=== PATIENT | male | born 1935 | race Caucasian/White ===

== ENCOUNTER → 2017-03-19 | Outpatient (CLI) | payer MEDICARE, OTHER ==
[~2017-03-19] VITALS: Ht 175.3 cm; Wt 75.7 kg
[~2017-03-19] MED LIST: ASPI-875 PO; CATHETER FLUSH 10 ML SYR IV PRN; FNST5T; MULT1TAB63; OMEP20CA12 PO; REGADENOSON 0.4 MG/5 ML SYR (LEXISCAN) IV ONE
[2017-03-19 13:19] VITALS: BP 130/62
[2017-03-19 13:22] VITALS: BP 124/63
[2017-03-19 13:25] VITALS: BP 157/77
--- NOTE | 2017-03-19 16:25 | ECHOCARDIOGRAPHY REPORT ---
DATE OF SERVICE: 03/19/2017 REFERRING PHYSICIAN: Dr. Megha Ross MEASUREMENT: LVID end diastolic 4.9. IVS thickness 1.1. LVPW thickness 1.0. Left atrial diameter 3.0. Ejection fraction 60%. FINDINGS: 1. Technical quality is good. 2. The left ventricle is normal in size with normal contractility, systolic function appeared to be normal, estimated fraction 60%. 3. The left atrium is normal in size. No clot or thrombus were seen within the left atrium. 4. The right atrium and right ventricle are normal in size. No clots or thrombus were seen within the right side. 5. Mitral valve is normal in morphology with mild mitral regurgitation noted by color Doppler flow. No mitral valve prolapse. No mitral valve stenosis. 6. Aortic valve is trileaflet with normal opening and closing pattern. No significant aortic stenosis or regurgitation was seen. 7. Tricuspid valve is normal in morphology with mild tricuspid regurgitation noted by color Doppler flow. Doppler across the tricuspid valve estimated pulmonary artery pressure of 17+ right atrial pressure. 8. Pulmonic valve is functioning normally. 9. No pericardial effusion. CONCLUSION: 1. Normal left ventricular size and systolic function, estimated ejection fraction 60%. 2. Mild mitral regurgitation, mild tricuspid regurgitation. 3. Estimated pulmonary artery pressure of 25 mmHg. Job ID: [id number] DocumentID: [id number] Dictated Date: 03/19/2017 14:43:36 Urgent Care Technician Date: 03/19/2017 15:24:56 Dictated By: ADOLPH CAMPOS MD
--- NOTE | 2017-03-20 07:11 | STRESS TEST ---
DATE OF SERVICE: 03/19/2017 EXERCISE AND LEXISCAN MYOVIEW STRESS TEST REFERRING PHYSICIAN: ____ FINDINGS: Baseline heart rate is 55. Baseline blood pressure 141/80. Baseline EKG is sinus rhythm with no abnormality. SUMMARY: The patient was injected with 10.42 mCi of technetium-99 Myoview, and the resting images were obtained. Then he started exercising with the baseline heart rate, blood pressure and EKG mentioned above. At minute 6 and 17 seconds, he was unable to perform any further. Test was terminated and converted to a Lexiscan Myoview stress test. The patient received 0.4 mg of Lexiscan, followed by 28.8 mCi of technetium-99 Myoview. Throughout the test, there were no EKG changes. The resting and stress images were reviewed and compared in the short axis, horizontal long axis and vertical long axis views. Review of the images showed diaphragmatic attenuation with mildly decreased uptake at the inferoapical segment with subtle reversibility. No significant ischemia was noted. SSS is 3, SDS 3, TID value 0.96. On the gated images, the left ventricle appeared to be normal size with normal contractility, calculated ejection fraction 61%. CONCLUSIONS: 1. Fair exercise tolerance, a total of 6 minutes 17 seconds on standard [place] protocol, did not reach his target heart rate. Test was terminated and converted to a Lexiscan Myoview stress test. He was unable to perform any further, tolerated Lexiscan well. 2. Diaphragmatic attenuation with typical male pattern with no significant ischemia or infarction on SPECT images. 3. Normal left ventricular size with normal contractility, calculated ejection fraction 61%. Job ID: [id number] DocumentID: [id number] Dictated Date: 03/19/2017 16:02:57 Heat Treater Apprentice Date: 03/19/2017 21:21:55 Dictated By: ADOLPH CAMPOS MD
== END ==
LOC: CARD 10:01
PROVIDERS: ATTEND Internal Medicine Cardiovascular Disease
DX: R07.89 Other chest pain (principal); I10 Essential (primary) hypertension; R00.2 Palpitations; K21.9 Gastro-esophageal reflux disease without esophagitis
CPT/HCPCS: 78452; 93017; 93306

== ENCOUNTER → 2017-04-01 | Outpatient (CLI) | payer MEDICARE, OTHER ==
[~2017-04-01] MED LIST changes: -CATHETER FLUSH 10 ML SYR IV PRN; -REGADENOSON 0.4 MG/5 ML SYR (LEXISCAN) IV ONE
--- NOTE | 2017-04-01 10:31 | Diagnostic Imaging Report ---
Three views of the thoracic spine. INDICATION: Back pain. FINDINGS: The alignment of the posterior spinal line is satisfactory. The vertebral body heights are preserved. There is mild right convexity scoliosis. There is ossification of the anterior longitudinal ligament. No definite posterior osteophytes is seen. The paraspinal soft tissues appear grossly unremarkable. IMPRESSION: Right convexity scoliosis. Degenerative changes. Dictated by: Dictated on workstation # [id number]
--- NOTE | 2017-04-01 11:04 | Diagnostic Imaging Report ---
EXAMINATION: Multiple views of the cervical spine. INDICATION: Neck pain. FINDINGS: There is reversal of the lordotic curvature of the cervical spine. The alignment of the posterior spinal line, however, appears satisfactory. There is no widening of the predental space. Also, there is satisfactory alignment of the facet joints suggested. The vertebral body heights are preserved. There is significant multilevel disc height loss around the mid to lower cervical spine, mostly involving C4-5 through the C6-7 levels. Anterior prominent and small posterior osteophytes at these levels are seen. The alignment of the lateral masses of C1 and C2 appears satisfactory. IMPRESSION: Prominent mid to lower cervical spine degenerative changes. Dictated by: Dictated on workstation # [id number]
== END ==
LOC: RAD 09:28
PROVIDERS: ATTEND Nurse Practitioner Family
DX: M47.812 Spondylosis without myelopathy or radiculopathy, cervical region (principal); M41.9 Scoliosis, unspecified; M47.814 Spondylosis without myelopathy or radiculopathy, thoracic region
CPT/HCPCS: 72040; 72072

== ENCOUNTER → 2019-05-27 | Emergency (ER) | payer MEDICARE, OTHER | LOC: ER 04:29 ==

== ENCOUNTER 2020-09-20 13:39 | Outpatient (RCR) | payer MEDICARE, OTHER ==
[~2020-09-20 13:39] MED LIST changes: +PRD20T PO
== END 2020-11-13 | disposition home or self-care (01) ==
PROVIDERS: ATTEND Family Medicine
DX: M54.9 Dorsalgia, unspecified (principal)

== ENCOUNTER → 2020-11-17 | Outpatient (CLI) | payer MEDICARE ==
[~2020-11-17] VITALS: Ht 175.3 cm; Wt 72.7 kg
[~2020-11-17] MED LIST changes: +BAMLANIVIMAB 700 MG in NS 200 ML IV ONE; +EPINEPHrine INJECTION 1 MG/ML AMP IM PRN; +diphenhydrAMINE 50 MG/ML INJ (BENADRYL) IV PRN
[2020-11-17 13:22] VITALS: BP 142/84
[2020-11-17 15:07] VITALS: BP 136/72
== END ==
LOC: INFUSION 13:23
PROVIDERS: ATTEND Nurse Practitioner Family
DX: U07.1 COVID-19 (principal); Z90.89 Acquired absence of other organs

== ENCOUNTER 2021-02-14 10:41 | Emergency (ER) | payer MEDICARE ==
[~2021-02-14] VITALS: Ht 175.2 cm; Wt 73.6 kg
[~2021-02-14 10:41] MED LIST changes: -BAMLANIVIMAB 700 MG in NS 200 ML IV ONE; -EPINEPHrine INJECTION 1 MG/ML AMP IM PRN; -diphenhydrAMINE 50 MG/ML INJ (BENADRYL) IV PRN
--- NOTE | 2021-02-14 11:26 | ED Neurological Problem ---
General Chief Complaint: Neurological Problems Stated Complaint: L LEG LOSS OF SENSATION Nursing Triage Note: AMB TO ROOM WITHOUT PROBLEM ACCOMPIED BY . PATIENT REPORTS THAT HIS L LEG WEINT NUMB AND COULD NOT USE IT. NOT HAVING ANY PROBLEM NOW. REPORTS DID HAVE COVID IN NOV. Nursing Sepsis Screen: No Definite Risk Source: patient, family Exam Limitations: no limitations History of Present Illness Date Seen by Provider: Feb 14, 2021 Time Seen by Provider: 11:30 Initial Comments Patient is an 85-year-old male who presents to the emergency department today with a chief complaint of left leg numbness and a feeling that his left leg was "absent". Symptoms came on approximately 1 hour prior to arrival and lasted about 15 minutes. Patient states he felt like his left leg was "floating". At the time he had this he also states that he felt the urge to defecate. He states that he had heavy feeling in the leg. Just prior to this the patient was using a gas powered violette to trim brush along his property. Patient states that he had Covid in November and was able to recover after having BAM. He has had some residual effects however for the most part is feeling much better after Covid. No recent illnesses such as fevers, chills, cough or congestion. No nausea vomiting or diarrhea. No urinary complaints. The patient was not incontinent. He has had no back pain. He states after the episode which lasted 15 minutes he had a little sensation in his head like he might of tried to get a headache. This too has resolved. Patient does take blood pressure medication. All other review of systems reviewed and negative except as stated above. Timing/Duration: 1 hour Severity: moderate Associated Symptoms: numbness in legs/feet (Left leg) Allergies and Home Medications Allergies Coded Allergies: Barbiturates (Unverified Allergy, Severe, SKIN SLOUGHING, 01/18/08) Lmmspln-Zwb-Ptu Reductase Inhibitor (Unverified Allergy, Unknown, 11/17/20) Uncoded Allergies: MSG (Allergy, Unknown, 12/01/06) Home Medications Aspirin 81 Mg Tablet.dr, 81 MG PO PRN, (Reported) Omeprazole 20 Mg Capsule., 1 CAP PO DAILY, (Reported) Prednisone 20 Mg Tab, 40 MG PO DAILY Prescribed by: GERARDO LOVE on 05/27/19 0648 Patient Home Medication List Home Medication List Reviewed: Yes Review of Systems Review of Systems Constitutional: see HPI Eyes: No Symptoms Reported Ears, Nose, Mouth, Throat: no symptoms reported Respiratory: no symptoms reported Cardiovascular: no symptoms reported Gastrointestinal: no symptoms reported Genitourinary: see HPI Musculoskeletal: no symptoms reported Skin: no symptoms reported Psychiatric/Neurological: Numbness (Left lower extremity) All Other Systems Reviewed Negative Unless Noted: Yes Past Xirrxgh-Tvouea-Mxkrwp Hx Patient Social History Alcohol Use: Regular Use Alcohol Beverage of Choice: [place] Smoking Status: Never a Smoker Recent Infectious Disease Expo: No Immunizations Up To Date Date of Pneumonia Vaccine: Nov 10, 2009 Date of Influenza Vaccine: Aug 10, 2012 Past Medical History Surgeries: Yes Abdominal Cardiac: Yes Hypertension Neurological: No Reproductive Disorders: No Genitourinary: Yes Benign Prostatic Hyperpl Gastrointestinal: Yes Gastroesophageal Reflux, Polyps Musculoskeletal: No Endocrine: No HEENT: No Cancer: No Physical Exam Vital Signs Vital Signs - First Documented 02/14/21 10:54 Temp 35.6 Pulse 68 Resp 18 B/P (MAP) 126/82 (97) Pulse Ox 97 O2 Delivery Room Air Capillary Refill : Less Than 3 Seconds Height, Weight, BMI Height: 5'9.00" Weight: 158lbs. 0.0oz. 71.245155gj; 23.00 BMI Method:Stated General Appearance: WD/WN, no apparent distress HEENT: PERRL/EOMI Neck: full range of motion Respiratory: lungs clear, normal breath sounds, no respiratory distress, no accessory muscle use Cardiovascular: regular rate, rhythm, no murmur Gastrointestinal: non tender, soft, no pulsatile mass Back: no vertebral tenderness Extremities: normal range of motion, non-tender, normal inspection, no pedal edema, no calf tenderness Neurologic/Psychiatric: no motor/sensory deficits, alert, normal mood/affect, oriented x 3 Crainal Nerves: normal hearing, normal speech, PERRL Coordination/Gait: normal finger to nose, normal gait Motor/Sensory: no motor deficit, no sensory deficit, no pronator drift Skin: normal color, warm/dry Progress/Results/Core Measures Results/Orders Lab Results Laboratory Tests Test 02/14/21 12:00 Range/Units White Blood Count 8.3 4.3-11.0 10^3/uL Red Blood Count 4.95 4.30-5.52 10^6/uL Hemoglobin 14.9 13.3-17.7 g/dL Hematocrit 45 40-54 % Mean Corpuscular Volume 91 80-99 fL Mean Corpuscular Hemoglobin 30 25-34 pg Mean Corpuscular Hemoglobin Concent 33 32-36 g/dL Red Cell Distribution Width 13.9 10.0-14.5 % Platelet Count 162 130-400 10^3/uL Mean Platelet Volume 9.6 9.0-12.2 fL Immature Granulocyte % (Auto) 0 % Neutrophils (%) (Auto) 73 42-75 % Lymphocytes (%) (Auto) 17 12-44 % Monocytes (%) (Auto) 8 0-12 % Eosinophils (%) (Auto) 1 0-10 % Basophils (%) (Auto) 0 0-10 % Neutrophils # (Auto) 6.0 1.8-7.8 10^3/uL Lymphocytes # (Auto) 1.4 1.0-4.0 10^3/uL Monocytes # (Auto) 0.7 0.0-1.0 10^3/uL Eosinophils # (Auto) 0.1 0.0-0.3 10^3/uL Basophils # (Auto) 0.0 0.0-0.1 10^3/uL Immature Granulocyte # (Auto) 0.0 0.0-0.1 10^3/uL Sodium Level 142 135-145 MMOL/L Potassium Level 4.1 3.6-5.0 MMOL/L Chloride Level 106 98-107 MMOL/L Carbon Dioxide Level 24 21-32 MMOL/L Anion Gap 12 5-14 MMOL/L Blood Urea Nitrogen 18 7-18 MG/DL Creatinine 1.32 H 0.60-1.30 MG/DL Estimat Glomerular Filtration Rate 51 BUN/Creatinine Ratio 14 Glucose Level 93 70-105 MG/DL Calcium Level 9.1 8.5-10.1 MG/DL My Orders Orders - DARRIUS GUTIERREZ MD Cbc With Automated Diff (02/14/21 11:37) Basic Metabolic Panel (02/14/21 11:37) Ct Head Wo (02/14/21 11:37) Mri Brain W/O Contrast (02/14/21 12:49) Vital Signs/I&O 02/14/21 10:54 Temp 35.6 Pulse 68 Resp 18 B/P (MAP) 126/82 (97) Pulse Ox 97 O2 Delivery Room Air Blood Pressure Mean: 97 Progress Progress Note : Time: 14:18 Progress Note Patient returned from MRI still asymptomatic. MRI was read as no acute intracranial pathology. Patient's vital signs have been completely stable. He looks well nontoxic. No signs of illness. Case was discussed with his primary care physician Dr. Alvarado who requested that I obtain the MRI. I did let her office know that his MRI was negative. They will pass along the message to her. Patient will be discharged to home with follow-up with Dr. ALVARADO. Will restart his baby aspirin daily. He is given return precautions. He verbalized understanding. All questions were sought and answered. Patient stable for discharge. Diagnostic Imaging Diagonstic Imaging: CT Plain Films/CT/US/NM/MRI: head [facility] [place] [place] NAME: [facility] REC#: [id number] PT STATUS: REG ER : 1935 PHYSICIAN: DARRIUS GUTIERREZ MD ADMIT DATE: 02/14/21/ER Draft Date of Exam:02/14/21 CT HEAD WO PROCEDURE: CT head without contrast. TECHNIQUE: Multiple contiguous axial images were obtained through the brain without the use of intravenous contrast. Auto Exposure Controls were utilized during the CT exam to meet ALARA standards for radiation dose reduction. INDICATION: Left leg weakness and numbness. Symptoms have resolved since. COMPARISON: No priors. FINDINGS: There is no intracerebral hemorrhage. There is no hydrocephalus. No findings of focal or generalized cerebral edema. The preston-white matter differentiations are maintained. There is no sulcal effacement. The basilar cisterns are patent. No mass or mass effect. The orbits, sinuses, and calvarium appear nonacute. IMPRESSION: No hemorrhage, edema, or acute appearing abnormalities. Dictated on workstation # [id number] Dict: 02/14/21 1229 Trans: 02/14/21 1233 [id number] Interpreted by: NICOLE DEVLIN Electronically signed by: [facility] [place] [place] NAME: [facility] REC#: [id number] PT STATUS: REG ER : 1935 PHYSICIAN: DARRIUS GUTIERREZ MD ADMIT DATE: 02/14/21/ER Draft Date of Exam:02/14/21 MRI BRAIN W/O CONTRAST PROCEDURE: MR imaging of the brain without contrast. TECHNIQUE: Multiplanar, multisequence MR imaging of the brain was performed without contrast. INDICATION: Left leg numbness and weakness. The diffusion-weighted images are without evidence of diffusion restriction to suggest acute ischemia. The normal expected flow-voids within the carotid siphons are seen. There is prominence of ventricles and sulci consistent with cerebral atrophy. There are mild periventricular and subcortical white matter changes noted consistent with chronic microvascular ischemia. There is no midline shift. No acute intra-axial or extra-axial hemorrhage is detected. Cisterns are patent. Corpus callosum is unremarkable. The sella and parasellar structures are unremarkable. IMPRESSION: Chronic and senescent changes. No acute intracranial process is detected. Dictated on workstation # [id number] Dict: 02/14/21 1351 Trans: 02/14/21 1355 [facility] [id number] Interpreted by: MERCY PINEDO MD Electronically signed by: Departure Impression Primary Impression: Transient ischemic attack Disposition: 01 HOME, SELF-CARE Condition: Stable Departure-Patient Inst. Decision time for Depature: 14:21 Referrals: JOELLE ALVARADO MD (PCP/Family) Primary Care Physician Patient Instructions: Transient Ischemic Attack (DC) Add. Discharge Instructions: Start taking your baby aspirin daily again. Please come back to the emergency department if you have any return or recurrence of symptoms or new complaints of numbness or weakness. Please call Dr. ALVARADO's office for a follow-up appointment this week or early next week. DARRIUS GUTIERREZ MD Feb 14, 2021 11:26
[2021-02-14 12:06] LABS: BASOPHILS % (AUTO) 0 % (0-10); EOSINOPHILS # (AUTO) 0.1 10^3/uL (0.0-0.3); EOSINOPHILS % (AUTO) 1 % (0-10); HEMATOCRIT 45 % (40-54); HEMOGLOBIN 14.9 g/dL (13.3-17.7); LYMPHOCYTES # (AUTO) 1.4 10^3/uL (1.0-4.0); LYMPHOCYTES % (AUTO) 17 % (12-44); MEAN CORPUSCULAR HEMOGLOBIN 30 pg (25-34); MEAN CORPUSCULAR HGB CONC 33 g/dL (32-36); MEAN CORPUSCULAR VOLUME 91 fL (80-99); MEAN PLATELET VOLUME 9.6 fL (9.0-12.2); MONOCYTES # (AUTO) 0.7 10^3/uL (0.0-1.0); MONOCYTES % (AUTO) 8 % (0-12); NEUTROPHILS % (AUTO) 73 % (42-75); PLATELET COUNT 162 10^3/uL (130-400); WHITE BLOOD COUNT 8.3 10^3/uL (4.3-11.0)
--- NOTE | 2021-02-14 12:33 | Diagnostic Imaging Report ---
PROCEDURE: CT head without contrast. TECHNIQUE: Multiple contiguous axial images were obtained through the brain without the use of intravenous contrast. Auto Exposure Controls were utilized during the CT exam to meet ALARA standards for radiation dose reduction. INDICATION: Left leg weakness and numbness. Symptoms have resolved since. COMPARISON: No priors. FINDINGS: There is no intracerebral hemorrhage. There is no hydrocephalus. No findings of focal or generalized cerebral edema. The preston-white matter differentiations are maintained. There is no sulcal effacement. The basilar cisterns are patent. No mass or mass effect. The orbits, sinuses, and calvarium appear nonacute. IMPRESSION: No hemorrhage, edema, or acute appearing abnormalities. Dictated by: Dictated on workstation # [id number]
[2021-02-14 12:34] LABS: POTASSIUM 4.1 MMOL/L (3.6-5.0)
[2021-02-14 12:35] LABS: CALCIUM 9.1 MG/DL (8.5-10.1)
[2021-02-14 12:39] LABS: CREATININE SERUM 1.32 MG/DL (0.60-1.30)
--- NOTE | 2021-02-14 13:56 | Diagnostic Imaging Report ---
PROCEDURE: MR imaging of the brain without contrast. TECHNIQUE: Multiplanar, multisequence MR imaging of the brain was performed without contrast. INDICATION: Left leg numbness and weakness. The diffusion-weighted images are without evidence of diffusion restriction to suggest acute ischemia. The normal expected flow-voids within the carotid siphons are seen. There is prominence of ventricles and sulci consistent with cerebral atrophy. There are mild periventricular and subcortical white matter changes noted consistent with chronic microvascular ischemia. There is no midline shift. No acute intra-axial or extra-axial hemorrhage is detected. Cisterns are patent. Corpus callosum is unremarkable. The sella and parasellar structures are unremarkable. IMPRESSION: Chronic and senescent changes. No acute intracranial process is detected. Dictated by: Dictated on workstation # [id number]
[2021-02-14 14:49] VITALS: BP 157/95
== END 2021-02-14 14:33 | disposition home or self-care (01) ==
LOC: EDUNIT# 10:41 → ER 10:43
DX: G45.9 Transient cerebral ischemic attack, unspecified (principal); K21.9 Gastro-esophageal reflux disease without esophagitis; Z88.8 Allergy status to other drugs, medicaments and biological substances; Z79.82 Long term (current) use of aspirin; Z79.52 Long term (current) use of systemic steroids
CPT/HCPCS: 36415; 70450; 70551; 80048; 85025

== ENCOUNTER → 2022-01-29 | Outpatient (CLI) | payer MEDICARE ==
--- NOTE | 2022-01-29 11:26 | Diagnostic Imaging Report ---
INDICATION: COUGH, POST COVID, SOB COMPARISON: None. FINDINGS: Frontal and lateral views of the chest demonstrate normal heart size and pulmonary vascularity. The lungs are clear. There are no signs of infiltrate, pleural effusions or pneumothoraces. The visualized osseous structures show no acute abnormalities. IMPRESSION: 1. No acute process. No signs of infiltrates, effusions or pneumothoraces. Dictated by: Dictated on workstation # [id number]
== END ==
LOC: RAD 09:37
PROVIDERS: ATTEND Nurse Practitioner Family
DX: R05.9 Cough, unspecified (principal); R06.02 Shortness of breath; U09.9 Post COVID-19 condition, unspecified
CPT/HCPCS: 71046

== ENCOUNTER 2023-03-15 12:20 | Emergency (ER) | payer MEDICARE ==
[~2023-03-15] VITALS: Ht 177.8 cm; Wt 72.5 kg
--- NOTE | 2023-03-15 12:52 | ED Lower Extremity ---
General Chief Complaint: Trauma-Non Activation Stated Complaint: CRUSH INJURY LEFT LEG Source: patient Exam Limitations: no limitations (PEDRITO DANIEL) History of Present Illness Date Seen by Provider: March 15, 2023 Time Seen by Provider: 12:49 Initial Comments Patient is a 87-year-old male who presents to ED with left leg pain. About 1 hour ago patient states he caught his leg between a tractor and lawnmower. States he was mowing grass on a slope. States that his lawnmower got stuck. He used a tractor to help pull him out. He states the tractor came down the slope pinching his left lower leg in between the lawnmower and tractor. He states the weight of the tractor was on his leg for at least 15 minutes. Patient has superficial abrasions. Small amount of bleeding. He takes a 81 mg aspirin daily. Denies of any severe pain at this time. Pain with standing. Does have some notable bruising. Denies pain out of proportion. Normal range of motion of his left ankle, knee and foot. Pulses equal bilateral. (PEDRITO DANIEL) Allergies and Home Medications Allergies Coded Allergies: Barbiturates (Unverified Allergy, Severe, SKIN SLOUGHING, 01/18/08) Rwyatek-Pnu-Erc Reductase Inhibitor (Unverified Allergy, Unknown, 11/17/20) Uncoded Allergies: MSG (Allergy, Unknown, 12/01/06) Patient Home Medication List Home Medication List Reviewed: Yes (PEDRITO DANIEL) Aspirin ([place] Aspirin) 81 Mg Tablet., 81 MG PO PRN, (Reported) Entered as Reported by: LAYNE CAMPBELL on 11/12/12 1300 Finasteride (Proscar) 5 Mg Tablet, (Reported) Entered as Reported by: BONY PINA on 01/18/08 1220 Multivitamins (Vitamins (Multi-Vit)) 1 Ea Tablet, (Reported) Entered as Reported by: BONY PINA on 01/18/08 1220 Omeprazole (Omeprazole) 20 Mg Capsule., 1 CAP PO DAILY, (Reported) Entered as Reported by: LAYNE CAMPBELL on 11/12/12 1300 Prednisone (Prednisone) 20 Mg Tab, 40 MG PO DAILY Prescribed by: GERARDO LOVE on 05/27/19 0648 Review of Systems Constitutional: No chills, No diaphoresis, No malaise, No weakness EENTM: No hearing loss, No double vision Respiratory: No cough, No short of breath Cardiovascular: No chest pain, No edema Gastrointestinal: No abdominal pain, No diarrhea, No nausea, No vomiting Genitourinary: No decreased output, No discharge Musculoskeletal: No back pain; joint pain, muscle pain, muscle stiffness Skin: change in color, other (Skin abrasions) (PEDRITO DANIEL) All Other Systems Reviewed Negative Unless Noted: Yes (PEDRITO DANIEL) Past Ogrvybd-Ynlamh-Zlgpxg Hx Patient Social History Tobacco Use?: No Use of E-Cig and/or Vaping dev: No Substance use?: No Alcohol Use?: Yes Alcohol Frequency: Daily Pt feels they are or have been: No (PEDRITO DANIEL) Past Medical History Surgeries: Yes Abdominal Cardiac: Yes Hypertension Neurological: No Reproductive Disorders: No Genitourinary: Yes Benign Prostatic Hyperpl Gastrointestinal: Yes Gastroesophageal Reflux, Polyps Musculoskeletal: No Endocrine: No HEENT: No Cancer: No (PEDRITO DANIEL) Physical Exam Vital Signs Vital Signs - First Documented 03/15/23 12:36 Pulse 66 Resp 17 B/P (MAP) 130/80 (97) Pulse Ox 95 O2 Delivery Room Air (ELINOR RUSH MD) Vital Signs Capillary Refill : (PEDRITO DANIEL) Height, Weight, BMI Height: 5'9.00" Weight: 158lbs. 0.0oz. 71.646984wh; 23.00 BMI Method:Stated General Appearance: WD/WN, no apparent distress HEENT: PERRL/EOMI, normal ENT inspection, TMs normal, pharynx normal Neck: non-tender, full range of motion, supple Cardiovascular: regular rate, rhythm, no edema, no gallop, no JVD Respiratory: chest non-tender, lungs clear, normal breath sounds, no respiratory distress, no accessory muscle use Gastrointestinal: normal bowel sounds, non tender, soft, no organomegaly Hips: bilateral hip non-tender, bilateral hip normal range of motion Legs: left leg pain, left leg soft tissue tenderness, left leg swelling, left leg other (2 skin abrasions noted to the left lower mid tib-fib. Small amount of bleeding. +2 dorsalis pedis bilateral. Normal active range of motion bilateral knees, bilateral ankles.) Knees: bilateral knee non-tender, bilateral knee normal inspection, bilateral knee normal range of motion Ankles: bilateral ankle non-tender, bilateral ankle normal inspection, bilateral ankle normal range of motion, bilateral ankle no evidence of injury Feet: bilateral foot normal range of motion Neurologic/Psychiatric: pipe foreman II-XII nml as tested, no motor/sensory deficits, alert, normal mood/affect, oriented x 3 Skin: other (2 superficial laceration to the left mid tib-fib) (PEDRITO DANIEL) Progress/Results/Core Measures Results/Orders Medications Given in ED Current Medications Medications Dose Ordered Sig/Maria G Route Start Time Stop Time Status Last Admin Dose Admin Diphtheria/ Tetanus/Acell Pertussis 0.5 ml ONCE ONCE IM 03/15/23 13:00 03/15/23 13:01 DC 03/15/23 13:40 0.5 ML (ELINOR RUSH MD) Vital Signs/I&O 03/15/23 03/15/23 12:36 13:49 Pulse 66 Resp 17 B/P (MAP) 130/80 (97) 128/78 Pulse Ox 95 O2 Delivery Room Air (ELINOR RUSH MD) Departure Communication (PCP) Patient suffered a left lower leg injury. Patient leg was pinned in between a lawnmower and tractor about an hour before arrival. Does have 2-3 superficial abrasions. Mild bleeding but for the most part controlled. Takes baby aspirin daily. Dorsiflexion plantarflexion intact. No cool extremity. Dorsalis pedis +2, posterior tibialis +2. Denies of any severe pain at this time suggesting compartment syndrome. Updated patient's tetanus. Due to mechanism of injury x- ray of the tib-fib was ordered. X-ray did not note any acute fracture. No evidence of open fracture. Refused anything for pain. Discussed all results with patient. Recommend ice, elevate, Neosporin twice a day for the next 10 days over the abrasions. Continue with anti-inflammatories at home for pain and swelling. If increased pain out of portion, increased swelling, decreased pulses to return back to ED. Patient does have crutches at home that he could utilize. Return precautions were discussed (PEDRITO DANIEL) Impression Primary Impression: Leg injury Disposition: HOME, SELF-CARE Condition: Stable Departure-Patient Inst. Decision time for Depature: 13:35 (PEDRITO DANIEL) Referrals: JOELLE CARBALLO MD (PCP/Family) Primary Care Physician Patient Instructions: Crush Injury Add. Discharge Instructions: Recommend ice 3-4 times a day for 20 to 30 minutes to help with swelling. Elevate at night. Ganesh wrap to help with swelling. Anti-inflammatories to help with pain and swelling. If increasing pain, coolness of the left lower extremity to return back to ED All discharge instructions reviewed with patient and/or family. Voiced understanding. ATTENDING PHYSICIAN NOTE: I was physically present as attending physician in the emergency department during the care of this patient, but I was not directly involved in the decision making or delivery of care for this patient. (ELINOR RUSH MD) PEDRITO DANIEL March 15, 2023 12:52 ELINOR RUSH MD March 15, 2023 15:21
[2023-03-15] MEDS ORDERED: TETANUS,DIPTH,PERTUSS P/F (BOOSTRIX) 0.5 ML VIAL IM ONE (13:00)
--- NOTE | 2023-03-15 13:27 | Diagnostic Imaging Report ---
CLINICAL HISTORY: Crush injury. Left leg pain. COMPARISON: None. TECHNIQUE: 2 views of the left tibia and fibula. FINDINGS: There is no acute fracture or dislocation of the left tibia and fibula. Alignment is anatomic. The imaged joint spaces are preserved. No focal osseous lesions. IMPRESSION: 1. No acute fracture or dislocation in the left tibia and fibula. Dictated by: Dictated on workstation # [id number]
[2023-03-15 13:49] VITALS: BP 128/78
== END 2023-03-15 13:49 | disposition home or self-care (01) ==
LOC: EDUNIT# 12:20 → ER 12:23
DX: S81.812A Laceration without foreign body, left lower leg, initial encounter (principal); Z23 Encounter for immunization; Z79.82 Long term (current) use of aspirin; W23.0XXA Caught, crushed, jammed, or pinched between moving objects, initial encounter
CPT/HCPCS: 73590; 90715

== ENCOUNTER 2023-03-22 07:47 | Emergency (ER) | payer MEDICARE ==
[~2023-03-22] VITALS: Ht 177 cm; Wt 72.5 kg
--- NOTE | 2023-03-22 08:11 | ED Lower Extremity ---
General Chief Complaint: Lower Extremity Stated Complaint: LEFT LEG SWOLLEN/PAINFUL Source: patient Exam Limitations: no limitations History of Present Illness Date Seen by Provider: March 22, 2023 Time Seen by Provider: 08:10 Initial Comments Patient is an 87-year-old male who presents to the emergency room with a chief complaint of swollen left leg that is painful. Patient had a crush injury approximately a week and a half ago where his leg got caught between a truck and tractor. He states he was pinned for approximately 15 minutes. He was seen in the emergency room on that day. Had a small wound to the left posterior calf. Since that time the leg is continued to swell and become more painful. He has only bathe the area possibly a couple of times. No ointments put over the wound. It has continued to enlarge and become necrotic. He denies fevers or chills. He denies feeling short of breath. No nausea vomiting or diarrhea. He has struggled with a little constipation due to decreased mobility due to the wound over the last 10 days. He has a history of hypertension and prostate issues. Denies numbness tingling or weakness. He is having to walk with a crutch. He describes a "burning sensation" in the left lateral lower leg. Onset: last week Severity: severe Pain/Injury Location: left leg, left knee, left foot, left ankle Method of Injury: other (Crush injury) Modifying Factors: Improves With Immobilization; Worse With Movement Allergies and Home Medications Allergies Coded Allergies: Barbiturates (Unverified Allergy, Severe, SKIN SLOUGHING, 01/18/08) Xemkykp-GLY-XdN Reductase Inhibitor (Unverified Allergy, Unknown, 11/17/20) Uncoded Allergies: MSG (Allergy, Unknown, 12/01/06) Patient Home Medication List Home Medication List Reviewed: Yes Aspirin ([place] Aspirin) 81 Mg Tablet., 81 MG PO PRN, (Reported) Entered as Reported by: LAYNE CAMPBELL on 11/12/12 1300 Finasteride (Proscar) 5 Mg Tablet, (Reported) Entered as Reported by: BONY PINA on 01/18/08 1220 Multivitamins (Vitamins (Multi-Vit)) 1 Ea Tablet, (Reported) Entered as Reported by: BONY PINA on 01/18/08 1220 Omeprazole (Omeprazole) 20 Mg Capsule., 1 CAP PO DAILY, (Reported) Entered as Reported by: LAYNE CAMPBELL on 11/12/12 1300 Prednisone (Prednisone) 20 Mg Tab, 40 MG PO DAILY Prescribed by: GERARDO LOVE on 05/27/19 0648 Review of Systems Constitutional: see HPI Respiratory: no symptoms reported Cardiovascular: no symptoms reported Gastrointestinal: no symptoms reported Genitourinary: no symptoms reported Musculoskeletal: other (Leg pain and swelling) Skin: other (Skin wound left posterior calf) All Other Systems Reviewed Negative Unless Noted: Yes Past Wbwxwtj-Lazref-Cwmais Hx Past Medical History Surgeries: Yes Abdominal Cardiac: Yes Hypertension Neurological: No Reproductive Disorders: No Genitourinary: Yes Benign Prostatic Hyperpl Gastrointestinal: Yes Gastroesophageal Reflux, Polyps Musculoskeletal: No Endocrine: No HEENT: No Cancer: No Physical Exam Vital Signs Vital Signs - First Documented 03/22/23 08:00 Temp 36.7 Pulse 86 Resp 16 B/P (MAP) 151/76 (101) Capillary Refill : Height, Weight, BMI Height: 5'9.00" Weight: 158lbs. 0.0oz. [id number]; 22.00 BMI Method:Stated General Appearance: WD/WN, no apparent distress HEENT: PERRL/EOMI Cardiovascular: regular rate, rhythm Respiratory: lungs clear, normal breath sounds, no respiratory distress, no ac cessory muscle use Gastrointestinal: normal bowel sounds, soft Hips: bilateral hip normal range of motion Legs: left leg pain, left leg soft tissue tenderness, left leg swelling Knees: left knee swelling Ankles: left ankle swelling Feet: left foot ecchymosis, left foot swelling Neurologic/Psychiatric: alert, normal mood/affect, oriented x 3 Skin: normal color, warm/dry Progress/Results/Core Measures Results/Orders Lab Results Laboratory Tests Test 03/22/23 08:25 Range/Units White Blood Count 8.7 4.3-11.0 10^3/uL Red Blood Count 4.34 4.30-5.52 10^6/uL Hemoglobin 13.4 13.3-17.7 g/dL Hematocrit 39 L 40-54 % Mean Corpuscular Volume 91 80-99 fL Mean Corpuscular Hemoglobin 31 25-34 pg Mean Corpuscular Hemoglobin Concent 34 32-36 g/dL Red Cell Distribution Width 13.2 10.0-14.5 % Platelet Count 173 130-400 10^3/uL Mean Platelet Volume 9.4 9.0-12.2 fL Immature Granulocyte % (Auto) 0 % Neutrophils (%) (Auto) 72 42-75 % Lymphocytes (%) (Auto) 18 12-44 % Monocytes (%) (Auto) 9 0-12 % Eosinophils (%) (Auto) 1 0-10 % Basophils (%) (Auto) 0 0-10 % Neutrophils # (Auto) 6.3 1.8-7.8 10^3/uL Lymphocytes # (Auto) 1.5 1.0-4.0 10^3/uL Monocytes # (Auto) 0.8 0.0-1.0 10^3/uL Eosinophils # (Auto) 0.1 0.0-0.3 10^3/uL Basophils # (Auto) 0.0 0.0-0.1 10^3/uL Immature Granulocyte # (Auto) 0.0 0.0-0.1 10^3/uL Prothrombin Time 14.1 12.2-14.7 SEC INR Comment 1.1 0.8-1.4 Activated Partial Thromboplast Time 32 24-35 SEC Sodium Level 139 135-145 MMOL/L Potassium Level 4.1 3.6-5.0 MMOL/L Chloride Level 106 98-107 MMOL/L Carbon Dioxide Level 22 21-32 MMOL/L Anion Gap 11 5-14 MMOL/L Blood Urea Nitrogen 17 7-18 MG/DL Creatinine 1.25 0.60-1.30 MG/DL Estimat Glomerular Filtration Rate 55 BUN/Creatinine Ratio 14 Glucose Level 92 70-105 MG/DL Lactic Acid Level 1.08 0.50-2.00 MMOL/L Calcium Level 9.2 8.5-10.1 MG/DL Corrected Calcium 9.3 8.5-10.1 MG/DL Total Bilirubin 1.0 0.1-1.0 MG/DL Aspartate Amino Transf (AST/SGOT) 18 5-34 U/L Alanine Aminotransferase (ALT/SGPT) 12 0-55 U/L Alkaline Phosphatase 58 40-136 U/L Total Creatine Kinase 98 30-200 U/L Total Protein 6.9 6.4-8.2 GM/DL Albumin 3.9 3.2-4.5 GM/DL My Orders Orders - DARRIUS GUTIERREZ MD Cbc With Automated Diff (03/22/23 08:21) Comprehensive Metabolic Panel (03/22/23 08:21) Blood Culture (03/22/23 08:21) Sputum Culture (03/22/23 08:21) Urinalysis (03/22/23 08:21) Urine Culture (03/22/23 08:21) Protime With Inr (03/22/23 08:21) Partial Thromboplastin Time (03/22/23 08:21) Chest 1 View, Ap/Pa Only (03/22/23 08:21) Ed Iv/Invasive Line Start (03/22/23 08:21) Ed Iv/Invasive Line Start (03/22/23 08:21) Vital Signs Adult Sepsis Patie Q15M (03/22/23 08:21) O2 (03/22/23 08:21) Remove Rings In Anticipation O (03/22/23 08:21) Lactic Acid Analyzer (03/22/23 08:21) Creatine Kinase (03/22/23 08:31) Us Venous Lower Ext Lt (03/22/23 09:23) Cefazolin Injection (Ancef Injection) (03/22/23 11:30) Vital Signs/I&O 03/22/23 08:00 Temp 36.7 Pulse 86 Resp 16 B/P (MAP) 151/76 (101) Progress Progress Note #1: Time: 09:21 Progress Note Case discussed with Dr Calvin (hospitalist on for Dr Alvarado's patients) recommends calling in Ultrasound due to advanced age, risk of anticoagulation over 48 hours if he doesn't have a DVT. Progress Note #2: Time: 12:[address] Raymond in room evaluating patient Progress Note #3: Time: 12:26 Progress Note Patient seen and evaluated by me. Evaluation today includes physical exam, "sepsis" work-up to include CBC, Chem-12, lactic acid, blood cultures, coags, chest x-ray. Pertinent physical exam findings well-developed well-nourished healthy appearing 87-year-old male in no acute distress. Heart is regular lungs are clear, abdomen is benign. Left leg is grossly edematous from distal thigh to the tips of his toes. Pulses are intact in the foot. Foot is warm, good coloration. He has diffuse ecchymosis over the lower leg consistent with his crush injury from approximately 10 days ago. He has an area of eschar on the posterior calf that is irregular in shape and approximately 8 cm in length by 3 to 4 cm in width. Very tender to palpation. There are a few peripheral blisters that are intact on the margins of the eschar. There is some surrounding erythema. No active drainage. Differential diagnosis based on history and physical exam, deep venous thrombosis, cellulitis, abscess. Labs reviewed by me, all completely and totally normal and within normal limits. Chest x-ray is not concerning for infiltrate or effusion. Vital signs have remained stable. I did order an additional study, DVT ultrasound of the left lower extremity after discussion with Dr. Calvin about anticoagulation versus ultrasound in the ED today. If we did not ultrasound today it would be scheduled for Friday and I was hesitant to do this and leave the patient anticoagulated over the weekend if he did not need it. DVT ultrasound showed no clot, but, a very large area of fluid collection in the left calf concerning for possible hematoma versus Jarrett levalee lesion. I did some investigating about this type of lesion and discussed the case with Dr. Raymond, general surgery on- call. He came to the emergency department to personally evaluate the patient. He concurs that the wound likely needs to be evacuated. I did give the patient 2 g of Ancef here in the emergency department. Dr. Raymond is going to schedule the patient for surgery on Friday. He advises outpatient Keflex. Patient and are comfortable with this plan of care. All questions are sought and answered. Patient will be instructed to keep the wrap on the calf. Diagnostic Imaging Diagonstic Imaging: Xray Plain Films/CT/US/NM/MRI: chest Comments [facility] [place], [place] NAME: HAMILTON YOUNG [facility] REC#: [id number] PT STATUS: REG ER : 1935 PHYSICIAN: DARRIUS GUTIERREZ MD ADMIT DATE: 03/22/23/ER Draft Date of Exam:03/22/23 CHEST 1 VIEW, AP/PA ONLY PATIENT HISTORY: leg swelling and pain. TECHNIQUE: Single frontal view of the chest. COMPARISON: None FINDINGS: The lung volumes are normal. No focal consolidation is seen. No large pleural effusion or pneumothorax is seen. The cardiomediastinal silhouette is normal in size and contour. No acute osseous abnormality is seen. IMPRESSION: No acute pulmonary abnormality seen. Dictated on workstation # [id number] Dict: 03/22/23 0839 Trans: 03/22/23 0841 [facility] [id number] Interpreted by: RADHA PILLAI MD Electronically signed by: Diagonstic Imaging: Ultrasound Comments [facility] [place] [place] NAME: HAMILTON YOUNG [facility] REC#: [id number] PT STATUS: REG ER : 1935 PHYSICIAN: DARRIUS GUTIERREZ MD ADMIT DATE: 03/22/23/ER Draft Date of Exam:03/22/23 US VENOUS LOWER EXT LT PROCEDURE: US left lower extremity venous. TECHNIQUE: Multiple real-time grayscale images were obtained over the left lower extremity in various projections. Additional duplex Doppler and color Doppler images were also obtained. HISTORY: Swelling and pain of the left lower extremity, crush injury. COMPARISON: None FINDINGS: The left common femoral vein, femoral vein, deep femoral vein, and popliteal vein are normal in appearance. These vessels show normal compressibility, color flow and doppler augmentation. The visualized deep calf veins demonstrate no distinct intraluminal thrombus. In the subcutaneous fat of the left calf in the area of interest there is a heterogeneous hypoechoic fluid collection which measures at least 9.1 x 1.1 x 4.3 cm in size. This most likely represents a hematoma given the patient's history. IMPRESSION: 1. No sonographic evidence of deep venous thrombosis in the left lower extremity. 2. Large subcutaneous fluid collection in the left calf, likely a hematoma. A Jarrett-Samuel type lesion is not excluded. Dictated on workstation # [id number] Dict: 03/22/23 1049 Trans: 03/22/23 1059 [facility] [id number] Interpreted by: RADHA PILLAI MD Electronically signed by: Departure Communication (Admissions) Time/Spoke to Consulting Phy: 11:[address] Raymond Impression Primary Impression: Traumatic hematoma of left lower leg Qualified Codes: S80.12XA - Contusion of left lower leg, initial encounter Additional Impression: Skin necrosis Disposition: 01 HOME, SELF-CARE Condition: Stable Departure-Patient Inst. Decision time for Depature: 12:31 Referrals: JOELLE ALVARADO MD (PCP/Family) Primary Care Physician ELENA RAYMOND DO Patient Instructions: Crush Injury Add. Discharge Instructions: Keep a wrap on the left calf until your surgery on Friday. Elevate the left leg while you are at rest to decrease swelling. You may wash the area daily with a mild soap and water. Be sure to dry it thoroughly. Tylenol extra strength 2 tablets every 6 hours as needed for pain. Take the Keflex - starting tonight, 1 tablet 4 times a day for a total of 10 days. Return to the Emergency Department if you develop worsening pain, fever, shortness of breath or any other emergent, concerning symptoms. Copy Copies To 1: JOELLE ALVARADO MD Copies To 2: ELENA RAYMOND KATHRYN M MD March 22, 2023 08:11
[2023-03-22 08:34] LABS: BASOPHILS % (AUTO) 0 % (0-10); EOSINOPHILS # (AUTO) 0.1 10^3/uL (0.0-0.3); EOSINOPHILS % (AUTO) 1 % (0-10); HEMATOCRIT 39 % (40-54); HEMOGLOBIN 13.4 g/dL (13.3-17.7); LYMPHOCYTES # (AUTO) 1.5 10^3/uL (1.0-4.0); LYMPHOCYTES % (AUTO) 18 % (12-44); MEAN CORPUSCULAR HEMOGLOBIN 31 pg (25-34); MEAN CORPUSCULAR HGB CONC 34 g/dL (32-36); MEAN CORPUSCULAR VOLUME 91 fL (80-99); MEAN PLATELET VOLUME 9.4 fL (9.0-12.2); MONOCYTES # (AUTO) 0.8 10^3/uL (0.0-1.0); MONOCYTES % (AUTO) 9 % (0-12); NEUTROPHILS # (AUTO) 6.3 10^3/uL (1.8-7.8); NEUTROPHILS % (AUTO) 72 % (42-75); PLATELET COUNT 173 10^3/uL (130-400); WHITE BLOOD COUNT 8.7 10^3/uL (4.3-11.0)
--- NOTE | 2023-03-22 08:42 | Diagnostic Imaging Report ---
PATIENT HISTORY: leg swelling and pain. TECHNIQUE: Single frontal view of the chest. COMPARISON: None FINDINGS: The lung volumes are normal. No focal consolidation is seen. No large pleural effusion or pneumothorax is seen. The cardiomediastinal silhouette is normal in size and contour. No acute osseous abnormality is seen. IMPRESSION: No acute pulmonary abnormality seen. Dictated by: Dictated on workstation # [id number]
[2023-03-22 08:51] LABS: ALBUMIN 3.9 GM/DL (3.2-4.5); INR 1.1 (0.8-1.4); POTASSIUM 4.1 MMOL/L (3.6-5.0); PROTHROMBIN TIME PATIENT 14.1 SEC (12.2-14.7)
[2023-03-22 08:52] LABS: CALCIUM 9.2 MG/DL (8.5-10.1)
[2023-03-22 08:53] LABS: TOTAL PROTEIN 6.9 GM/DL (6.4-8.2)
[2023-03-22 08:57] LABS: CREATININE SERUM 1.25 MG/DL (0.60-1.30)
--- NOTE | 2023-03-22 11:00 | Diagnostic Imaging Report ---
PROCEDURE: US left lower extremity venous. TECHNIQUE: Multiple real-time grayscale images were obtained over the left lower extremity in various projections. Additional duplex Doppler and color Doppler images were also obtained. HISTORY: Swelling and pain of the left lower extremity, crush injury. COMPARISON: None FINDINGS: The left common femoral vein, femoral vein, deep femoral vein, and popliteal vein are normal in appearance. These vessels show normal compressibility, color flow and doppler augmentation. The visualized deep calf veins demonstrate no distinct intraluminal thrombus. In the subcutaneous fat of the left calf in the area of interest there is a heterogeneous hypoechoic fluid collection which measures at least 9.1 x 1.1 x 4.3 cm in size. This most likely represents a hematoma given the patient's history. IMPRESSION: 1. No sonographic evidence of deep venous thrombosis in the left lower extremity. 2. Large subcutaneous fluid collection in the left calf, likely a hematoma. A Jarrett-Samuel type lesion is not excluded. Dictated by: Dictated on workstation # [id number]
[2023-03-22] MEDS ORDERED: ceFAZolin INJECTION 2,000 MG in NS (IVPB) 50 ML IV ONE (11:30)
[2023-03-22 12:47] VITALS: BP 157/86
--- NOTE | 2023-03-22 12:55 | Consultation - Surgery ---
History of Present Illness History of Present Illness Patient Consulted On(ryan/time) 03/22/23 12:54 Date Seen by Provider: March 22, 2023 Time Seen by Provider: 12:54 Reason for Visit: Lower left extremity crush injury/swelling History of Present Illness Consult for Dr. Keys CC: lower left leg swelling & associated pain per ED: "Patient is an 87-year-old male who presents to the emergency room with a chief complaint of swollen left leg that is painful. Patient had a crush injury approximately a week and a half ago where his leg got caught between a truck and tractor. He states he was pinned for approximately 15 minutes. He was seen in the emergency room on that day. Had a small wound to the left posterior calf. Since that time the leg is continued to swell and become more painful. He has only bathe the area possibly a couple of times. No ointments put over the wound. It has continued to enlarge and become necrotic. He denies fevers or chills. He denies feeling short of breath. No nausea vomiting or diarrhea. He has struggled with a little constipation due to decreased mobility due to the wound over the last 10 days. He has a history of hypertension and prostate issues. Denies numbness tingling or weakness. He is having to walk with a crutch. He describes a "burning sensation" in the left lateral lower leg. Onset: last week" Pt was calm and stable when seen, he denied seeing any suppurative drainage from the wound, and described the pain as achy tender pressure. he said he has no numbness or tingling but the proximal lateral dorsal region of his left foot felt a kind of "burning ache". He was agreable to the idea of surgical debridement and assessing further into the severity/extent of his condition in the OR. He denies fever or chills, lightheadedness, SOB, chest pain. Allergies and Home Medications Allergies Coded Allergies: Barbiturates (Unverified Allergy, Severe, SKIN SLOUGHING, 01/18/08) Lazrvcb-OUV-EhZ Reductase Inhibitor (Unverified Allergy, Unknown, 11/17/20) Uncoded Allergies: MSG (Allergy, Unknown, 12/01/06) Patient Home Medication List Aspirin ([place] Aspirin) 81 Mg Tablet., 81 MG PO PRN, (Reported) Entered as Reported by: LAYNE CAMPBELL on 11/12/12 1300 Cephalexin (Cephalexin) 500 Mg Tablet, 500 MG PO TID Prescribed by: ELENA RAYMOND on 03/22/23 1443 Finasteride (Proscar) 5 Mg Tablet, (Reported) Entered as Reported by: BONY PINA on 01/18/08 1220 Multivitamins (Vitamins (Multi-Vit)) 1 Ea Tablet, (Reported) Entered as Reported by: BONY PINA on 01/18/08 1220 Omeprazole (Omeprazole) 20 Mg Capsule.dr, 1 CAP PO DAILY, (Reported) Entered as Reported by: LAYNE CAMPBELL on 11/12/12 1300 Prednisone (Prednisone) 20 Mg Tab, 40 MG PO DAILY Prescribed by: GERARDO LOVE on 05/27/19 0648 Past Gljfzzv-Qcaafy-Svhnfc Hx Patient Social History Alcohol Use?: No Have you traveled recently?: No Immunizations Up To Date Date of Pneumonia Vaccine: Nov 10, 2009 Date of Influenza Vaccine: Aug 10, 2012 Surgeries History of Surgeries: Yes Surgeries: Abdominal Cardiovascular History of Cardiac Disorders: Yes Cardiac Disorders: Hypertension Neurological History of Neurological Disord: No Reproductive System Hx Reproductive Disorders: No Genitourinary History of Genitourinary Disor: Yes Genitourinary Disorders: Benign Prostatic Hyperpl Gastrointestinal History of Gastrointestinal Di: Yes Gastrointestinal Disorders: Gastroesophageal Reflux, Polyps Musculoskeletal History of Musculoskeletal Dis: No Endocrine History of Endocrine Disorders: No HEENT History of HEENT Disorders: No Cancer History of Cancer: No Review of Systems-General Constitutional: No chills, No diaphoresis, No dizziness EENTM: No vision loss, No hoarseness Respiratory: No cough, No hemoptysis, No short of breath Cardiovascular: No chest pain, No palpitations Gastrointestinal: No abdominal pain, No nausea, No vomiting Genitourinary: No dysuria, No hematuria, No incontinence Musculoskeletal: muscle stiffness (from being immoble ); No muscle weakness Skin: change in color, lesions Psychiatric/Neurological: Denies Headache, Denies Numbness, Denies Paresthesia; Other (burning on dorsal lateral left foot) Physical Exam-General Problems Physical Exam Vital Signs Vital Signs - First Documented 03/22/23 08:00 Temp 36.7 Pulse 86 Resp 16 B/P (MAP) 151/76 (101) Capillary Refill : Less Than 3 Seconds General Appearance: WD/WN, no apparent distress HEENT: PERRL/EOMI; No photophobia Neck: non-tender, supple Respiratory: chest non-tender, lungs clear, no respiratory distress, no accessory muscle use Cardiovascular: regular rate, rhythm, no murmur Peripheral Pulses: 2+ Dorsalis Pedis (R); 1+ Left Dors-Pedis (L); 2+ Radial Pulses (R), 2+ Radial Pulses (L) Gastrointestinal: non tender, soft Back: no CVA tenderness, no vertebral tenderness Extremities: calf tenderness (medial left leg, mostly directly adjacent to the point of the trauma), inflammation (left leg), swelling (lower left extremity) Neurologic/Psychiatric: alert, oriented x 3, abnormal gait (mostly due to trauma induced immobility on left leg, uses crutch for ambulation) Skin: warm/dry, ecchymosis (left leg), other (black eschar appearing necrotic lesion on medial mid lower extremity) Data Review Labs Laboratory Tests 03/22/23 08:25: White Blood Count 8.7, Red Blood Count 4.34, Hemoglobin 13.4, Hematocrit 39L, Mean Corpuscular Volume 91, Mean Corpuscular Hemoglobin 31, Mean Corpuscular Hemoglobin Concent 34, Red Cell Distribution Width 13.2, Platelet Count 173, Mean Platelet Volume 9.4, Immature Granulocyte % (Auto) 0, Neutrophils (%) (Auto) 72, Lymphocytes (%) (Auto) 18, Monocytes (%) (Auto) 9, Eosinophils (%) (Auto) 1, Basophils (%) (Auto) 0, Neutrophils # (Auto) 6.3, Lymphocytes # (Auto) 1.5, Monocytes # (Auto) 0.8, Eosinophils # (Auto) 0.1, Basophils # (Auto) 0.0, Immature Granulocyte # (Auto) 0.0, Prothrombin Time 14.1, INR Comment 1.1, Activated Partial Thromboplast Time 32, Sodium Level 139, Potassium Level 4.1, Chloride Level 106, Carbon Dioxide Level 22, Anion Gap 11, Blood Urea Nitrogen 17, Creatinine 1.25, Estimat Glomerular Filtration Rate 55, BUN/Creatinine Ratio 14, Glucose Level 92, Lactic Acid Level 1.08, Calcium Level 9.2, Corrected Calc ium 9.3, Total Bilirubin 1.0, Aspartate Amino Transf (AST/SGOT) 18, Alanine Aminotransferase (ALT/SGPT) 12, Alkaline Phosphatase 58, Total Creatine Kinase 98, Total Protein 6.9, Albumin 3.9 Assessment/Plan Assessment/Plan Assessment/Plan Left sided lower extremity crush injury hematoma vs Jarrett-lavellee lesion vs compartment syndrome possible erysipelas vs cellulitis * prophylactic antibiotics * slight compression wrap to be placed on left leg over the weekend * LE U/S ruled out DVT, cease use of blood thinners * Scheduled for surgical debridement along with any other indicated procedures on this coming friday * Instructed to be NPO after midnight on Friday [place] March 22, 2023 12:55
[2023-03-22] MEDS ORDERED: CEPH500T PO (14:43)
--- NOTE | 2023-03-22 18:40 | Consultation - Surgery ---
History of Present Illness History of Present Illness Patient Consulted On(ryan/time) 03/22/23 18:35 Date Seen by Provider: March 22, 2023 Time Seen by Provider: 12:05 Reason for Visit: Lower left extremity crush injury/swelling History of Present Illness Consult requested by Dr. Keys for crush injury left leg 03/15/23 Patient is an 87 year old male who on March 15 (1 week) had crush injury to left lower leg. He had some abrasions at that time and swelling/hematoma to the area. This increased a little further but over the last few days has had no increase in the swelling. There was an area of purplish skin though that turned black 2 days ago. Has some skin changes around it. Only occasionl pain. Came back to the emergency department today because it didn't look like it was improving. Denies n/v fever sweats chills shortness of breath or chest pain. U/s done and does not show dvt but does show fluid collection. Allergies and Home Medications Allergies Coded Allergies: Barbiturates (Unverified Allergy, Severe, SKIN SLOUGHING, 01/18/08) Kqawgrt-HJO-OvL Reductase Inhibitor (Unverified Allergy, Unknown, 11/17/20) Uncoded Allergies: MSG (Allergy, Unknown, 12/01/06) Patient Home Medication List Home Medication List Reviewed: Yes Aspirin ([place] Aspirin) 81 Mg Tablet.dr, 81 MG PO PRN, (Reported) Entered as Reported by: LAYNE CAMPBELL on 11/12/12 1300 Cephalexin (Cephalexin) 500 Mg Tablet, 500 MG PO TID Prescribed by: ELENA RAYMOND on 03/22/23 1443 Finasteride (Proscar) 5 Mg Tablet, (Reported) Entered as Reported by: BONY PINA on 01/18/08 1220 Multivitamins (Vitamins (Multi-Vit)) 1 Ea Tablet, (Reported) Entered as Reported by: BONY PINA on 01/18/08 1220 Omeprazole (Omeprazole) 20 Mg Capsule., 1 CAP PO DAILY, (Reported) Entered as Reported by: LAYNE CAMPBELL on 11/12/12 1300 Prednisone (Prednisone) 20 Mg Tab, 40 MG PO DAILY Prescribed by: GERARDO LOVE on 05/27/19 0648 Past Zgvwhll-Vsefdp-Crblly Hx Patient Social History Alcohol Use?: No Have you traveled recently?: No Immunizations Up To Date Date of Pneumonia Vaccine: Nov 10, 2009 Date of Influenza Vaccine: Aug 10, 2012 Surgeries History of Surgeries: Yes Surgeries: Abdominal Cardiovascular History of Cardiac Disorders: Yes Cardiac Disorders: Hypertension Neurological History of Neurological Disord: No Reproductive System Hx Reproductive Disorders: No Genitourinary History of Genitourinary Disor: Yes Genitourinary Disorders: Benign Prostatic Hyperpl Gastrointestinal History of Gastrointestinal Di: Yes Gastrointestinal Disorders: Gastroesophageal Reflux, Polyps Musculoskeletal History of Musculoskeletal Dis: No Endocrine History of Endocrine Disorders: No HEENT History of HEENT Disorders: No Cancer History of Cancer: No Reviewed Nursing Assessment Reviewed/Agree w Nursing PMH: Yes Family Medical History Significant Family History: No Pertinent Family Hx Review of Systems-General Constitutional: No chills, No diaphoresis EENTM: No blurred vision, No double vision Respiratory: No cough, No dyspnea on exertion Cardiovascular: No chest pain, No palpitations Gastrointestinal: No abdominal pain, No nausea, No vomiting Genitourinary: No decreased output, No discharge Musculoskeletal: No back pain; other (left lower extremity swelling/pain) Skin: change in color; No change in hair/nails Psychiatric/Neurological: Denies Anxiety, Denies Depressed, Denies Emotional Problems All Other Systems Reviewed Negative Unless Noted: Yes (Negative excepted noted.) Physical Exam-General Problems Physical Exam Vital Signs Vital Signs - First Documented 03/22/23 03/22/23 08:00 12:47 Temp 36.7 Pulse 86 Resp 16 B/P (MAP) 151/76 (101) Pulse Ox 99 Capillary Refill : Less Than 3 Seconds General Appearance: WD/WN, no apparent distress HEENT: PERRL/EOMI, normal ENT inspection Neck: non-tender, supple Respiratory: chest non-tender, no respiratory distress Cardiovascular: regular rate, rhythm, no JVD Gastrointestinal: non tender, soft Rectal: deferred Back: no CVA tenderness, no vertebral tenderness Extremities: swelling, other (left lower extremity from distal thigh down to ankle, swelling present, slight fluctuance) Neurologic/Psychiatric: alert, normal mood/affect, oriented x 3 Skin: warm/dry (area of black eschar left lower leg fluctuance below, surrounding the eschar purplish erytematous hue of skin) Lymphatic: no adenopathy Data Review Labs Laboratory Tests 03/22/23 08:25: White Blood Count 8.7, Red Blood Count 4.34, Hemoglobin 13.4, Hematocrit 39L, Mean Corpuscular Volume 91, Mean Corpuscular Hemoglobin 31, Mean Corpuscular Hemoglobin Concent 34, Red Cell Distribution Width 13.2, Platelet Count 173, Mean Platelet Volume 9.4, Immature Granulocyte % (Auto) 0, Neutrophils (%) (Auto) 72, Lymphocytes (%) (Auto) 18, Monocytes (%) (Auto) 9, Eosinophils (%) (Auto) 1, Basophils (%) (Auto) 0, Neutrophils # (Auto) 6.3, Lymphocytes # (Auto) 1.5, Monocytes # (Auto) 0.8, Eosinophils # (Auto) 0.1, Basophils # (Auto) 0.0, Immature Granulocyte # (Auto) 0.0, Prothrombin Time 14.1, INR Comment 1.1, Activated Partial Thromboplast Time 32, Sodium Level 139, Potassium Level 4.1, Chloride Level 106, Carbon Dioxide Level 22, Anion Gap 11, Blood Urea Nitrogen 1 7, Creatinine 1.25, Estimat Glomerular Filtration Rate 55, BUN/Creatinine Ratio 14, Glucose Level 92, Lactic Acid Level 1.08, Calcium Level 9.2, Corrected Calcium 9.3, Total Bilirubin 1.0, Aspartate Amino Transf (AST/SGOT) 18, Alanine Aminotransferase (ALT/SGPT) 12, Alkaline Phosphatase 58, Total Creatine Kinase 98, Total Protein 6.9, Albumin 3.9 Assessment/Plan Assessment/Plan Assessment/Plan Left sided lower extremity crush injury 1 week ago 03/15/23 hematoma vs Jarrett-mary lesion We discussed overall care plan. Patient does not seem to have infection, but i'm concerned the area around the black eschar may be from ischemia and have increased eschar. will give it more time to see if it does and will plan debirdement of the left lower extremity on Friday. Not having any increased or swelling but if does he is going to call me and may need to do surgery sooner. Until then Placed on Keflex Will use brianna wrap to gently wrap the lower extremity. Discussed predatory animal exterminator goal of wound care and healing, needing wound care and may need wound vac and grafting. ELENA RAYMOND DO March 22, 2023 18:40
== END 2023-03-22 13:01 | disposition home or self-care (01) ==
LOC: EDUNIT# 07:47 → ER 07:49
DX: S80.12XA Contusion of left lower leg, initial encounter (principal); S90.32XA Contusion of left foot, initial encounter; I96 Gangrene, not elsewhere classified; W23.0XXA Caught, crushed, jammed, or pinched between moving objects, initial encounter
CPT/HCPCS: 36415; 71045; 80053; 82550; 83605; 85025; 85610; 85730; 87040

== ENCOUNTER 2023-03-24 11:36 | Day surgery (SDC) | payer MEDICARE ==
[2023-03-24] VITALS (11 sets, daily range): BP systolic 98–154; BP diastolic 53–76
[~2023-03-24] VITALS: Ht 175.3 cm; Wt 72.6 kg
[~2023-03-24 11:36] MED LIST changes: +CEPH500T PO
[2023-03-24] MEDS ORDERED: LACTATED RINGERS 1,000 ML IV PRN (12:15)
[2023-03-24] MEDS ORDERED: ceFAZolin INJECTION 2,000 MG in NS (IVPB) 50 ML IV ONE (12:30)
[2023-03-24] MEDS ORDERED: NEBI5TAB11 (12:38)
[2023-03-24] MEDS ORDERED: AMLO-250 (12:38)
[2023-03-24] MEDS ORDERED: SEVOFLURANE (ULTANE) 15 ML INHAL SOLN ONE (12:55)
[2023-03-24] MEDS ORDERED: proPOfol 200 MG/20 ML (DIPRIVAN) VIAL IV ONE (12:55)
[2023-03-24] MEDS ORDERED: LIDOCAINE PF 2% 5 ML (XYLOCAINE) VIAL ONE (12:55)
--- NOTE | 2023-03-24 12:55 | Progress Note-Pre Operative ---
Pre-Operative Progress Note Date H&P Reviewed: March 24, 2023 Time H&P Reviewed: 12:54 History & Physical: H&P Reviewed, Patient Examed, No changes noted Pre-Operative Diagnosis: left leg wound ELENA RAYMOND DO March 24, 2023 12:55
[2023-03-24] MEDS ORDERED: MIDAZOLAM 2 MG/2 ML (VERSED) VIAL ONE (12:56)
[2023-03-24] MEDS ORDERED: fentaNYL INJ 100 MCG/2 ML AMP ONE (12:56)
--- NOTE | 2023-03-24 14:19 | Anesthesia-General Post-Op ---
General Patient Condition Mental Status/LOC: Same as Preop Cardiovascular: Satisfactory Nausea/Vomiting: Absent Respiratory: Satisfactory Pain: Controlled Complications: Absent Post Op Complications Complications None Follow Up Care/Instructions Patient Instructions None needed. Anesthesia/Patient Condition Patient Condition Patient is doing well, no complaints, stable vital signs, no apparent adverse anesthesia problems. No complications reported per nursing. ROSE DONATO CRNA March 24, 2023 14:19
[2023-03-24] MEDS ORDERED: morphine INJ 10 MG/ML 1ML (SYR OR VIAL) IVP ONE (14:30)
[2023-03-24] MEDS ORDERED: ONDANSETRON 4 MG/2 ML (SDV) Z0FRAN IVP PRN (14:30)
[2023-03-24] MEDS ORDERED: MEPERIDINE (DEMEROL) INJ 50 MG/ML IVP ONE (14:30)
[2023-03-24] MEDS ORDERED: morphine INJ 10 MG/ML 1ML (SYR OR VIAL) ONE (14:39)
[2023-03-24] MEDS ORDERED: ACHD5005 PO (14:41)
--- NOTE | 2023-03-24 14:43 | Discharge Inst-Simple/Standard ---
Discharge Inst-Standard Discharge Medications New, Converted or Re-Newed RX: Transmitted to Pharmacy Patient Instructions/Follow Up Plan of Care/Instructions/FU: Alexa mccarty for wound care unless has wound care appointment. Alexa 1 week. Activity as Tolerated: No Discharge Diet: Regular Diet Other Inst to Patient Follow up Appt: Make appointment for 1 week [place]. Liu tomorrow unless wound care has appointment tomorrow. Instructions: No lifting greater than 10 pounds. No strenuous activity. May shower in 24 hours, no tub bath or soaking. Use incentive spirometer at home as directed. No Smoking Skin/Wound Care: Wound is packed, need daily wound care. Will see you tomorrow for first dressing change unless you have appointment with wound care clinic. Symptoms to Report: Appetite Changes, Extremity Discoloration, Numbness/Tingling, Swelling Increased, Bleeding Excessive, Eyesight Changes, Pain Increased, Urine Color Change, Constipation(Persistent), Fever over 101 degree F, Pain/Pressure in chest, Urinating Difficulty, Cough Up/Vomit Blood, Heart Beat Irreg/Pounding, Pain/Pressure in jaw, Vaginal Bleeding Increase, Cramps in feet or legs, Lightheadedness, Pain/Pressure in shoulder, Diarrhea(Persistent), Memory Changes Suddenly, Questions/Concerns, Weight gain consecutive days, Dizziness/Fainting, Nausea/Vomiting, Shortness of Breath, Weight gain over 2 pounds If questions or concerns contact your physician Or seek help at emergency department. ELENA LIU DO March 24, 2023 14:43
[2023-03-24] MEDS ORDERED: HYDROcodone/APAP 5 MG/325 MG (LORTAB) TAB ONE (15:59)
[2023-03-24] MEDS ORDERED: HYDROcodone/APAP 5 MG/325 MG (LORTAB) TAB PO ONE (16:00)
--- NOTE | 2023-03-25 02:56 | OPERATIVE REPORT ---
DATE OF SERVICE: 03/24/2023 PREOPERATIVE DIAGNOSIS: Left leg wound. POSTOPERATIVE DIAGNOSIS: Left leg wound and large seroma with separation of skin from the subcutaneous tissue and fascia. PROCEDURE: Left leg cautery debridement of necrotic skin 8 x 5 cm with washout. SURGEON: Elena Liu DO ANESTHESIA: General. ESTIMATED BLOOD LOSS: Minimal. COMPLICATIONS: None. INDICATIONS: The patient is an 87-year-old male who had a crush injury to the left lower extremity. These were approximately a week and half ago. The patient developed an ischemic area of the calf, but also an area of fluctuance. Findings suggestive of Jarrett-Samuel lesion. The patient was discussed risks and benefits of procedure and wished to proceed. Consent was signed in chart. DESCRIPTION OF PROCEDURE: The patient was taken to the operating suite where he was prepped and draped in sterile fashion. Timeout was performed. Cautery was used to excise the necrotic skin. Once this was removed, a significant amount of serosanguineous fluid was present, which was evacuated. There is delineation of skin from the fascia present for the majority of the lower leg in appearance. The skin, however, does have viable appearance. The necrotic tissue was removed. The wound was then irrigated with copious amounts of irrigation and suction. Once this was performed, the wound was then packed with iodoform and the leg was then wrapped with Kerlix and Coban. The patient tolerated the procedure well without complications, taken to recovery room in stable condition. RECOMMENDATIONS: The patient will continue daily wound care. May need further surgical intervention and then, will need longstanding wound care until healed. The patient has followup appointment made. Job ID: [id number] DocumentID: [id number] Dictated Date: 03/24/2023 21:12:10 Supervisor Payroll Date: 03/25/2023 02:55:00 Dictated By: ELENA LIU DO
== END 2023-03-24 16:45 ==
LOC: SDC 11:36
PROVIDERS: ATTEND Surgery
DX: S81.802A Unspecified open wound, left lower leg, initial encounter (principal); L98.8 Other specified disorders of the skin and subcutaneous tissue; W23.0XXA Caught, crushed, jammed, or pinched between moving objects, initial encounter
CPT/HCPCS: 87070; 87075; 87077; 87081; 87185; 87205; 88304

== ENCOUNTER → 2023-03-25 | Outpatient (CLI) | payer MEDICARE ==
[~2023-03-25] MED LIST changes: +ACHD5005 PO; +AMLO-250; +NEBI5TAB11
== END ==
LOC: WOUNDCARE 10:14
PROVIDERS: ATTEND Family Medicine
DX: T79.2XXA Traumatic secondary and recurrent hemorrhage and seroma, initial encounter (principal); S87.82XA Crushing injury of left lower leg, initial encounter; T81.31XA Disruption of external operation (surgical) wound, not elsewhere classified, initial encounter; R60.0 Localized edema; I96 Gangrene, not elsewhere classified
CPT/HCPCS: A6260; G0463; 99213

== ENCOUNTER → 2023-04-02 | Outpatient (CLI) | payer MEDICARE | LOC: WOUNDCARE 13:46 | PROVIDERS: ATTEND Family Medicine | DX: T81.31XA Disruption of external operation (surgical) wound, not elsewhere classified, initial encounter (principal); R60.0 Localized edema; S87.82XA Crushing injury of left lower leg, initial encounter; T79.2XXA Traumatic secondary and recurrent hemorrhage and seroma, initial encounter; I96 Gangrene, not elsewhere classified | CPT/HCPCS: 11042; 11045; 97605; G0463 ==

== ENCOUNTER → 2023-04-04 | Outpatient (CLI) | payer MEDICARE | LOC: WOUNDCARE 10:59 | PROVIDERS: ATTEND Family Medicine | DX: S81.802A Unspecified open wound, left lower leg, initial encounter (principal); X58.XXXA Exposure to other specified factors, initial encounter; I10 Essential (primary) hypertension | CPT/HCPCS: 97605; G0463 ==

== ENCOUNTER → 2023-04-08 | Outpatient (CLI) | payer MEDICARE | LOC: WOUNDCARE 10:07 | PROVIDERS: ATTEND Family Medicine | DX: T79.2XXA Traumatic secondary and recurrent hemorrhage and seroma, initial encounter (principal); T81.31XA Disruption of external operation (surgical) wound, not elsewhere classified, initial encounter; S87.82XA Crushing injury of left lower leg, initial encounter; R60.0 Localized edema; I96 Gangrene, not elsewhere classified | CPT/HCPCS: 11042; 11045; G0463 ==

== ENCOUNTER → 2023-04-11 | Outpatient (CLI) | payer MEDICARE | LOC: WOUNDCARE 09:46 | PROVIDERS: ATTEND Family Medicine | DX: S81.802A Unspecified open wound, left lower leg, initial encounter (principal); I10 Essential (primary) hypertension | CPT/HCPCS: 97605; G0463 ==

== ENCOUNTER → 2023-04-14 | Outpatient (CLI) | payer MEDICARE | LOC: WOUNDCARE 09:40 | PROVIDERS: ATTEND Family Medicine | DX: T79.2XXA Traumatic secondary and recurrent hemorrhage and seroma, initial encounter (principal); T81.31XA Disruption of external operation (surgical) wound, not elsewhere classified, initial encounter; S87.82XA Crushing injury of left lower leg, initial encounter; R60.0 Localized edema; I96 Gangrene, not elsewhere classified | CPT/HCPCS: 11042; 11045; 97605; G0463 ==

== ENCOUNTER → 2023-04-16 | Outpatient (CLI) | payer MEDICARE | LOC: WOUNDCARE 09:42 | PROVIDERS: ATTEND Family Medicine | DX: T81.31XA Disruption of external operation (surgical) wound, not elsewhere classified, initial encounter (principal); T79.2XXA Traumatic secondary and recurrent hemorrhage and seroma, initial encounter; S87.82XA Crushing injury of left lower leg, initial encounter; R60.0 Localized edema | CPT/HCPCS: 97605; G0463 ==

== ENCOUNTER → 2023-04-18 | Outpatient (CLI) | payer MEDICARE | LOC: WOUNDCARE 09:37 | PROVIDERS: ATTEND Family Medicine | DX: S81.802A Unspecified open wound, left lower leg, initial encounter (principal); X58.XXXA Exposure to other specified factors, initial encounter; I10 Essential (primary) hypertension | CPT/HCPCS: 97605; G0463 ==

== ENCOUNTER → 2023-04-21 | Outpatient (CLI) | payer MEDICARE | LOC: WOUNDCARE 10:18 | PROVIDERS: ATTEND Family Medicine | DX: T81.31XA Disruption of external operation (surgical) wound, not elsewhere classified, initial encounter (principal); T79.2XXA Traumatic secondary and recurrent hemorrhage and seroma, initial encounter; S87.82XA Crushing injury of left lower leg, initial encounter; I96 Gangrene, not elsewhere classified; R60.0 Localized edema | CPT/HCPCS: 11042; 11045; A6197; G0463 ==

== ENCOUNTER → 2023-04-28 | Outpatient (CLI) | payer MEDICARE | LOC: WOUNDCARE 09:44 | PROVIDERS: ATTEND Family Medicine | DX: I96 Gangrene, not elsewhere classified (principal); T81.31XA Disruption of external operation (surgical) wound, not elsewhere classified, initial encounter; T79.2XXA Traumatic secondary and recurrent hemorrhage and seroma, initial encounter; S87.82XA Crushing injury of left lower leg, initial encounter; R60.0 Localized edema | CPT/HCPCS: 11042; 11045; 87070; 87205; G0463 ==

== ENCOUNTER → 2023-05-05 | Outpatient (CLI) | payer MEDICARE | LOC: WOUNDCARE 09:46 | PROVIDERS: ATTEND Family Medicine | DX: T81.31XA Disruption of external operation (surgical) wound, not elsewhere classified, initial encounter (principal); T79.2XXA Traumatic secondary and recurrent hemorrhage and seroma, initial encounter; S87.82XA Crushing injury of left lower leg, initial encounter; R60.0 Localized edema | CPT/HCPCS: 11042; 11045; A6212; G0463 ==

== ENCOUNTER → 2023-05-12 | Outpatient (CLI) | payer MEDICARE | LOC: WOUNDCARE 09:48 | PROVIDERS: ATTEND Family Medicine | DX: T81.31XA Disruption of external operation (surgical) wound, not elsewhere classified, initial encounter (principal); T79.2XXA Traumatic secondary and recurrent hemorrhage and seroma, initial encounter; S87.82XA Crushing injury of left lower leg, initial encounter; R60.0 Localized edema | CPT/HCPCS: 11042; A6212; G0463 ==

== ENCOUNTER → 2023-05-19 | Outpatient (CLI) | payer MEDICARE | LOC: WOUNDCARE 09:55 | PROVIDERS: ATTEND Family Medicine | DX: T81.31XA Disruption of external operation (surgical) wound, not elsewhere classified, initial encounter (principal); T79.2XXA Traumatic secondary and recurrent hemorrhage and seroma, initial encounter; S87.82XA Crushing injury of left lower leg, initial encounter; I96 Gangrene, not elsewhere classified; R60.0 Localized edema | CPT/HCPCS: 11042; A6212; G0463 ==

== ENCOUNTER → 2023-06-09 | Outpatient (CLI) | payer MEDICARE | LOC: WOUNDCARE 09:52 | PROVIDERS: ATTEND Family Medicine | DX: T81.31XA Disruption of external operation (surgical) wound, not elsewhere classified, initial encounter (principal); T79.2XXA Traumatic secondary and recurrent hemorrhage and seroma, initial encounter; S87.82XA Crushing injury of left lower leg, initial encounter; R60.0 Localized edema | CPT/HCPCS: 11042; A6212; G0463 ==

== ENCOUNTER → 2023-06-16 | Outpatient (CLI) | payer MEDICARE | LOC: WOUNDCARE 09:57 | PROVIDERS: ATTEND Family Medicine | DX: T79.2XXA Traumatic secondary and recurrent hemorrhage and seroma, initial encounter (principal); T81.31XA Disruption of external operation (surgical) wound, not elsewhere classified, initial encounter; S87.82XA Crushing injury of left lower leg, initial encounter; R60.0 Localized edema | CPT/HCPCS: 11042; A6212; G0463 ==

== ENCOUNTER → 2023-06-23 | Outpatient (CLI) | payer MEDICARE | LOC: WOUNDCARE 09:52 | PROVIDERS: ATTEND Family Medicine | DX: T81.31XA Disruption of external operation (surgical) wound, not elsewhere classified, initial encounter (principal); T79.2XXA Traumatic secondary and recurrent hemorrhage and seroma, initial encounter; R60.0 Localized edema; S87.82XA Crushing injury of left lower leg, initial encounter | CPT/HCPCS: 11042; A6212; G0463 ==

== ENCOUNTER → 2023-06-30 | Outpatient (CLI) | payer MEDICARE | LOC: WOUNDCARE 09:54 | PROVIDERS: ATTEND Family Medicine | DX: T79.2XXA Traumatic secondary and recurrent hemorrhage and seroma, initial encounter (principal); T81.31XA Disruption of external operation (surgical) wound, not elsewhere classified, initial encounter; S87.82XA Crushing injury of left lower leg, initial encounter; R60.0 Localized edema | CPT/HCPCS: 99212 ==